=== PATIENT | female | born 1935 | race Caucasian/White ===

== ENCOUNTER → 2017-02-09 | Outpatient (CLI) | payer MEDICARE ==
--- NOTE | 2017-02-10 15:03 | XR ---
EXAMINATION TYPE: XR Hip Complete LT DATE OF EXAM: 02/09/2017 11:38 AM COMPARISON: NONE HISTORY: Left hip pain increasing groin pain TECHNIQUE: 2 view left hip FINDINGS: Some femoral head spurring is present. There is mild narrowing of the left hip joint space. No acute fractures evident. IMPRESSION: 1. Mild degenerative change left hip
== END | disposition home or self-care (01) ==
LOC: RADXRYALE 11:27
PROVIDERS: ATTEND Nurse Practitioner Family
DX: R10.30 Lower abdominal pain, unspecified (principal)
CPT/HCPCS: 73502